=== PATIENT | female | born 1990 | race African-American/Black ===

== ENCOUNTER 2020-04-29 16:03 | Emergency (ER) | payer MEDICAID ==
[~2020-04-29] VITALS: Ht 170.2 cm; Wt 91.6 kg
[2020-04-29 16:15] VITALS: BP 132/56
--- NOTE | 2020-04-29 16:18 | NUR ---
PT AMBULATED TO BED 06
--- NOTE | 2020-04-29 16:20 | NUR ---
30 Y/O FEMALE FROM HOME C/O VAGINAL DISCOMFORT X 3 DAYS. PT STATES SHE WAS SEEN IN ER ON APRIL 17 AND TREATED PROPHYLACTICALLY FOR STD. SINCE THEN INCREASED VAGINAL DISCOMFORT WITH ITCHING, BURNING, AND DISCHARGE. STATES NO ODOR IN DISCHARGE. DENIES VAGINAL BLEEDING. AFEBRILE. AWAKE AND ALERT. VSS MEDHX: DENIES ALLERGIES: LUIS MANUELA
--- NOTE | 2020-04-29 16:23 | NUR ---
DEZ ADAME AT BEDSIDE EXAMINING PT
--- NOTE | 2020-04-29 16:39 | NUR ---
PELVIC SETUP PLACED AT BEDSIDE
--- NOTE | 2020-04-29 16:49 | NUR ---
Female Technology Intern accompanied female patient for Pelvic Exam COMPLETED BY DEZ ADAME.
--- NOTE | 2020-04-29 16:51 | NUR ---
URINE AND WET MOUNT WALKED OVER TO LAB.
[2020-04-29] MEDS ORDERED: cefTRIAXone 250 MG in LIDOCAINE MPF 1% 0.9 ML IM ONE (16:55)
[2020-04-29] MEDS ORDERED: LIDOCAINE MPF 1% 5 ML ONE (17:05)
[2020-04-29] MEDS ORDERED: cefTRIAXone 250 MG VIAL ONE (17:05)
[2020-04-29 18:04] VITALS: BP 128/61
--- NOTE | 2020-04-29 18:05 | NUR ---
Patient discharged with v/s stable. Written and verbal after care instructions given and explained. Patient alert, oriented and verbalized understanding of instructions. Ambulatory with steady gait. All questions addressed prior to discharge. ID band removed. Patient advised to follow up with PMD. Rx of AZITHROMYCIN 500MG, MACROBID 100MG, DIFLUCAN 150MG given. Patient educated on indication of medication including possible reaction and side effects. Opportunity to ask questions provided and answered.
[2020-05-01 06:38] LABS: CHLAMYDIA TRACHOMATIS AMP DNA Negative (Negative)
== END 2020-04-29 18:05 | disposition home or self-care (01) ==
LOC: MED 16:03
DX: O23.41 Unspecified infection of urinary tract in pregnancy, first trimester (principal); O98.811 Other maternal infectious and parasitic diseases complicating pregnancy, first trimester; O26.891 Other specified pregnancy related conditions, first trimester; N76.0 Acute vaginitis; F17.210 Nicotine dependence, cigarettes, uncomplicated; F12.10 Cannabis abuse, uncomplicated
CPT/HCPCS: 36415; 81002; 81025; 87086; 87210; 87491; 96372; 99284; J0696; J2001

== ENCOUNTER 2020-05-23 11:29 | Emergency (ER) | payer MEDICAID ==
[~2020-05-23] VITALS: Ht 168.9 cm; Wt 90.7 kg
[2020-05-23 11:41] VITALS: BP 129/61
--- NOTE | 2020-05-23 11:48 | NUR ---
WAIT AT LOBBY
--- NOTE | 2020-05-23 12:31 | NUR ---
CALLED PATIENT FOR LAB DRAW AND PATIENT NOT IN LOBBY. WENT OUT TO PARKING LOT TO FIND PATIENT AND DID NOT SEE HER. PT WILL BE A PATIENT LEFT WITHOUT BEING SEEN BY DR. MACKAY. NO FURTHER CARE PROVIDED FOR PATIENT.
== END 2020-05-23 12:31 | disposition left against medical advice (07) ==
LOC: MED 11:29
DX: O26.891 Other specified pregnancy related conditions, first trimester (principal); Z3A.08 8 weeks gestation of pregnancy; Z53.21 Procedure and treatment not carried out due to patient leaving prior to being seen by health care provider